=== PATIENT | female | born 1985 | race Caucasian/White ===

== ENCOUNTER 2021-09-19 19:54 | Inpatient (IN) | payer SELFPAY ==
[2021-09-19 20:09] VITALS: BP 175/102; PULSE 109; RESP 20; TEMP 36.7; O2SAT 98; BMI 27.6
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
--- NOTE | 2021-09-19 20:48 | ECG_ITS ---
[facility] Test Date: 2021-09-19 Pat Name: Mariah Hillman Department: Room: Gender: Female Real Estate Closing Coordinator: : 1985 Requested By: Danna Kim Order Number: [id number] Hector MD: Ambreen Aviles M.D. Measurements Intervals [place] Rate: 112 P: 59 SC: 131 QRS: 50 QRSD: 82 T: 44 QT: 344 QTc: 470 Interpretive Statements SINUS TACHYCARDIA ABNORMAL RHYTHM ECG No previous ECG available for comparison Electronically Signed On 09-20-2021 5:18:29 DIRECTOR CLINICAL APPLICATIONS by Ambreen Aviles M.D. [id number]
[2021-09-19 20:54] LABS: Basophils # 0.1 10^3/uL (0.0-0.1); Basophils % 0.8 %; Eosinophils # 0.2 10^3/uL (0.0-0.8); Eosinophils % 1.7 %; Hematocrit 42.2 % (37.0-47.0); Hemoglobin 13.8 g/dL (11.5-15.3); Lymphocytes # 3.3 10^3/uL (0.8-4.8); Lymphocytes % 37.2 %; Mean Corpuscular HGB Conc 32.7 g/dL (30.0-36.0); Mean Corpuscular Volume 91.7 fl (81-99); Mean Platelet Volume 8.8 fL (7.4-10.4); Monocytes # 0.5 10^3/uL (0.2-0.9); Neutrophils # 4.79 10^3/uL (1.8-7.7); Neutrophils % 54.1 %; Nucleated Red Blood Cells % 0 %; Platelet Count 394 10^3/cmm (130-400); Red Cell Distribution Width 14.4 % (12.1-15.1); White Blood Count 8.9 10^3/uL (4.0-10.0)
[2021-09-19 21:27] LABS: Alanine Aminotransferase 9 U/L (0-33); Albumin Level 4.3 g/dL (3.5-5.2); Alcohol Level 223 mg/dL (0-10); Alkaline Phosphatase 118 IU/L (35-105); Anion Gap 20.2 (5-19); Aspartate Amino Transferase 21 U/L (0-32); Blood Urea Nitrogen 8 mg/dL (6-20); Calcium 9.6 mg/dL (8.5-10.5); Carbon Dioxide 20 mmol/L (22-29); Chloride 105 mmol/L (98-107); Globulin 4.7 g/dL (1.3-4.6); Glomerular Filtration Rate 82.1 mL/min (90-130); Glucose 107 mg/dL (65-115); Osmolality Calculated 291 mOsm/kg (285-295); Potassium 4.2 mmol/L (3.5-5.1); Sodium 141 mmol/L (136-145); Total Bilirubin 0.2 mg/dL (0.15-1.2)
[2021-09-19 21:33] LABS: Acetaminophen < 5.0 ug/mL (10-30); Salicylate < 0.3 mg/dL (3-10)
[2021-09-19 21:38] LABS: HCG Qualitative Urine. Negative (Negative)
[2021-09-19 21:46] VITALS: BP 130/84; PULSE 101
[2021-09-19] MEDS: LORazepam 0.5 mg Tablet PO (22:00)
[2021-09-19 22:24] LABS: Amphetamines Screen Urine Negative (Negative); Barbiturates Screen Urine Negative (Negative); Benzodiazepines Screen Urine Negative (Negative); Cocaine Screen Urine Negative (Negative); Opiate Screen Urine Negative (Negative); PCP Screen Urine Negative (Negative); THC Screen Urine Positive (Negative)
[2021-09-19] MEDS: nicotine 21 mg Patch 1 PATCH TRANSDERMA (23:59)
[2021-09-20 00:28] VITALS: BP 147/107; PULSE 99; RESP 16; TEMP 36.9; O2SAT 98
[2021-09-20] MEDS: trazodone 50 mg Tablet PO (00:57)
[2021-09-20 06:00] VITALS: BP 127/80; PULSE 86; RESP 18; TEMP 36.7; O2SAT 98
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
--- NOTE | 2021-09-20 12:51 | NPU.GN ---
[facility] Group Topic: Self Care General Mood of Group: Mariah did not attend group he was sleeping .
[2021-09-20 14:00] VITALS: BP 100/68; PULSE 68; RESP 17; TEMP 36.6; O2SAT 98
[2021-09-20 20:19] VITALS: BP 157/112; PULSE 87; RESP 18; TEMP 36.6; O2SAT 99
[2021-09-20] MEDS: BuSPIRONE 10 mg Tablet 15 MG PO (21:15)
[2021-09-21 05:40] VITALS: BP 144/94; PULSE 76; RESP 17; TEMP 36.7; O2SAT 97
[2021-09-21] MEDS: BuSPIRONE 10 mg Tablet 15 MG PO ×2 (09:02→21:07)
--- NOTE | 2021-09-21 12:44 | NPU.GN ---
[facility] Topic:Coping Skills General Mood of Group: Mariah did not attend group today.
[2021-09-21 14:00] VITALS: BP 149/102; PULSE 78; RESP 17; TEMP 36.7; O2SAT 98
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
[2021-09-21 20:09] VITALS: BP 156/90; PULSE 78; RESP 16; TEMP 36.6; O2SAT 99
[2021-09-21] MEDS: trazodone 50 mg Tablet PO (21:07)
--- NOTE | 2021-09-22 02:24 | PC.NURSE ---
Patient requested PRN trazodone to help sleep, given as ordered with noted effectiveness.
[2021-09-22 06:00] VITALS: BP 149/93; PULSE 77; RESP 16; O2SAT 98
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
[2021-09-22] MEDS: BuSPIRONE 10 mg Tablet 15 MG PO ×3 (12:32→20:52)
--- NOTE | 2021-09-22 12:43 | NPU.GN ---
[facility] Topic:Symptoms/ Judgment Boat Activity General Mood of Group: Mariah did not attend group today.
[2021-09-22 13:53] VITALS: BP 147/95; PULSE 72; RESP 16; TEMP 36.6; O2SAT 99
[2021-09-22 14:00] VITALS: BP 147/95; PULSE 72; RESP 16; TEMP 36.6; O2SAT 99
[2021-09-22 21:59] VITALS: BP 150/93; PULSE 75; RESP 16; TEMP 36.7; O2SAT 100
[2021-09-23 06:00] VITALS: BP 145/97; PULSE 74; RESP 18; O2SAT 99
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
[2021-09-23] MEDS: BuSPIRONE 10 mg Tablet 15 MG PO (10:02)
[2021-09-23 10:21] VITALS: BP 145/97; PULSE 74; RESP 18; O2SAT 99
== END 2021-09-23 10:29 | disposition home or self-care (01) | DRG 882 ==
LOC: ER 22:13 → NP 22:45
PROVIDERS: Emergency Medicine; Admitting Provider Psychiatry & Neurology Psychiatry; Emergency Provider Physician Assistant; Visit Provider Psychiatry & Neurology Psychiatry
DX: F43.25 Adjustment disorder with mixed disturbance of emotions and conduct (principal); R45.851 Suicidal ideations; F32.A Depression, unspecified; F10.129 Alcohol abuse with intoxication, unspecified; F17.210 Nicotine dependence, cigarettes, uncomplicated; F41.9 Anxiety disorder, unspecified; Z81.8 Family history of other mental and behavioral disorders; F43.0 Acute stress reaction
CPT/HCPCS: 36415; 80053; 80306; 80307; 81025; 85025; 93005; 97165; 99285

== ENCOUNTER 2024-11-04 11:30 | Emergency (ER) | payer SELFPAY ==
[2024-11-04 11:47] VITALS: BP 175/98; PULSE 85; RESP 18; TEMP 36.9; O2SAT 99; BMI 31.1
[2024-11-04 11:54] VITALS: BP 135/97; O2SAT 99
--- NOTE | 2024-11-04 12:17 | ED_ITS ---
HPI - Skin/Abscess/Foreign Bdy General: Chief complaint: Skin/Abscess/Foreign Body Stated complaint: bumps on arms Time Seen by Provider: 11/04/24 11:52 Source: patient Mode of arrival: ambulatory Limitations: no limitations History of Present Illness: Patient is a nice 39-year-old female who presents to ED today for evaluation of subcutaneous areas of induration involving her right volar forearm and the anterior aspect of her left ankle as well as a smaller lesion involving her volar left upper arm. Patient feels like the area to her right forearm has been present over the past month. She noticed the left ankle lesion approximately 3 weeks ago. She states the lesions are not painful and do not bother her unless she accidentally bumps them on something . No known injury or trauma. No br eaks in the skin, abrasions, cuts, etc. Denies IV drug use. She is not having any systemic symptoms such as joint pains, fevers, chills. She does feel like the areas have enlarged since onset. The one involving her left upper arm is only pea-sized . She does feel like they are slightly warm to the touch. Onset (ago): week(s) Location: LUE, RUE and LLE Severity: mild Relieving factors: none Exacerbating factors: none Context: none Associated symptoms: Reports no associated symptoms; Deny chills or fever(s) Treatments prior to arrival: none Related Data Home Medications ?Medication ?Instructions ?Recorded ?Confirmed No Known Home Medications 09/21/2110/12 Allergies Allergy/AdvReac Type Severity Reaction Status Date / Time No Known Allergies Allergy Verified 09/11/20 12:07 Review of Systems Const: Denies: fever(s), chills, body aches, fatigue or malaise Resp: Denies: dyspnea Musc: Reports: extremity pain; Denies: neck pain, back pain, joint pain, joint swelling, joint redness, joint warmth, joint stiffness, limited range of motion, muscle cramps or muscle weakness Skin/Breast: Reports: skin tenderness and new lesions Neuro: Denies: headache(s), numbness in extremities, weakness in extremities, sensory changes or difficulty walking [facility] ED PFSH: Social History Smoking and tobacco/nicotine status: current every day tobacco/nicotine user Physical Exam Const: COMMON NORMALS: no acute distress, average body habitus, patient oriented x3, no limitations, healthy appearing, alert and well nourished Extremity: COMMON NORMALS: normal to inspection, full ROM, capillary refill normal, no joint enlargement, no clubbing, cyanosis or edema, no calf tenderness and no pedal edema GENERAL: Yes normal exam except as noted RIGHT UPPER EXTREMITY: Yes lower arm LEFT UPPER EXTREMITY: Yes upper arm LEFT LOWER EXTREMITY: Yes ankle joint OTHER: pt has area of subcutaneous induration to the right volar forearm; slightly warm to the touch; no significant overlying cellulitic appearance; no breaks in the skin or evidence of drug use; no lymphangitic streaking; there is no fluctuance or drainage; nothing to suggest abscess she has a similar lesion involving the anterior aspect of her left ankle; full ROM of ankle joint without pain; no anterior tibial nodules small 1 cm similar lesion involving the volar aspect of her left upper arm Neuro: COMMON NORMALS: patient oriented x3 SENSORIUM/ORIENTATION: Yes alert Course Vital Signs: Vital signs: Vital Signs Temperature 98.4 F 11/04/24 11:47 Pulse Rate 79 11/04/24 12:43 Respiratory Rate 16 11/04/24 12:43 Blood Pressure 135/97 11/04/24 12:43 Pulse Oximetry 99 11/04/24 12:43 Oxygen Delivery Me thod Room Air 11/04/24 11:47 MDM - Skin/Abscess/Foreign Bdy Medicial Decision Making Patient here with multiple areas of subcutaneous induration without obvious evidence of infectious etiology. She clinically appears in no acute distress with stable vital signs. At this time I do not have any concern for life- threatening or emergent etiology. We did discuss following up with primary care for further evaluation. Return precautions discusssed. Medical Records I reviewed the patient's medical records. No radiology studies performed this visit Discharge Plan Discharge Patient Disposition: Home Clinical Impression: Lesion of subcutaneous tissue Condition: Stable Prescriptions: No Action No Known Home Medications Discharge Orders: Discharge ED (Routine); Ordered 11/04/24 Ordered By: Danna Kim Activity Restrictions/Additional Instructions: As we discussed, I would like you to follow-up with a primary care provider for further evaluation of your skin lesions. From the emergency department, I do not have any concern for life-threatening or emergent etiologies at this time. Please continue to monitor lesions closely. You may return to the emergency department for worsening pain, redness, warmth, swelling, any streaking up your leg or arm, fevers, or any other concerns you may have. Print Language: Arabic Coding Level of Care Code ED Electrolysis Investigator for Baljeet Hope
[2024-11-04 12:43] VITALS: BP 135/97; PULSE 79; RESP 16; O2SAT 99
--- NOTE | 2024-11-06 11:03 | DCPLANNER ---
messaged [facility] to establish PCP
== END 2024-11-04 12:44 | disposition home or self-care (01) ==
PROVIDERS: Emergency Provider Physician Assistant
DX: L98.8 Other specified disorders of the skin and subcutaneous tissue (principal); Z72.0 Tobacco use
CPT/HCPCS: 99283